=== PATIENT | female | born 1995 | race Caucasian/White ===

== ENCOUNTER 2021-02-25 12:33 | Outpatient (CLI) | payer OTHER, SELFPAY ==
[2021-02-25 13:18] LABS: Hemoglobin 12.9 g/dL (12.0-15.0); Mean Corpuscular HGB Conc 33.1 g/dl (32-36); Mean Corpuscular Hemoglobin 31.5 pg (26-34); Mean Corpuscular Volume 95.4 fl (80-100); Mean Platelet Volume 9.9 fl (7.4-10.4); Platelet Count Result 319 k/mm3 (150-375); Red Blood Count 4.09 M/mm3 (4.2-5.4); Red Cell Distribution Width 13.5 % (11.5-14.5); White Blood Count 7.9 K/mm3 (4.5-10.0)
== END 2021-02-25 12:34 | disposition home or self-care (01) ==
LOC: ANHSURGERY 12:37
PROVIDERS: Visit Provider Obstetrics & Gynecology Gynecologic Oncology
DX: Z01.812 Encounter for preprocedural laboratory examination (principal); N83.209 Unspecified ovarian cyst, unspecified side
CPT/HCPCS: 36415; 85027; 86850; 86900; 86901

== ENCOUNTER 2021-02-28 00:48 | Day surgery (SDC) | payer OTHER, SELFPAY ==
[2021-02-17 09:43] VITALS: BMI 23.9
--- NOTE | 2021-02-17 10:01 | PC.NURSE ---
Report to the Outpatient Waiting Room, entrance under the green pavilion located off [facility], at time _1000 on date __02/28/2021 . OR Time: ___1200 . - You and your visitor will be asked a series of questions to screen for COVID 19 for your protection. - A mask is required within the hospital. - Only one visitor is allowed at this time. Patient visitors will be guided where to wait when not with patient. Preoperative COVID Testing Requirements: No COVID Test needed if: (proof is required; if not received patient will have Rapid Test prior to entry) - Patient has received COVID Vaccine at least 14 days prior to procedure date or - Patient has positive COVID test result within last 90 days of surgery date. COVID Test needed if above criteria is not met If not COVID vaccinated a COVID test must be conducted within 72 hours of surgery and patient is asked to isolate self from time of testing until procedure. You will go to the [facility] for your COVID testing. The [facility] is located at the corner of [address] [facility]. You will only be called if COVID results are positive and your surgeon may reschedule your elective surgery date. Patients may have clear liquids (water, carbonated beverages, clear teas, apple juice) until 3 hours prior to surgery with a maximum of 20 ounces. - No food from midnight until time of surgery - Infants may have breast milk until 4 hours before surgery, formula 6 hours prior to surgery. - Children will be allowed to drink immediately following surgery. If applicable, please bring a bottle or sippy cup to assist with drinking. Juice, water, soda, and popsicles are readily available. For infants on formula, please bring formula the day of surgery. Pacifiers are allowed. Take the following medications with a SIP of water the morning of surgery: Medications to discontinue per physician Date to take last dose Please no make-up, nail trinidadian, hairspray, perfume, deodorant, or body powder the day of surgery. No jewelry (including any body piercings) or valuables the day of surgery, leave them at home. Please take a shower or bath the night before, or the morning of, surgery with an antibacterial soap. Wear comfortable, loose fitting clothing. Children are encouraged to wear pajamas. - Jewelry must be removed prior to entering the operating room. Rings and piercings that are not removed may be cut off. - The hospital will not accept responsibility for valuables. - Please leave all valuables, including medications, at home the day of surgery. If you are going home after surgery, a licensed pole truck driver must drive you home. - NO public transportation without another adult. - We recommend that an adult stay with you for 24 hours following discharge. - We also recommend that you do not drive, make important decision, drink alcoholic beverages, or take any drugs that were not prescribed by your health care provider for at least 24 hours after your discharge time. For Pediatric surgeries, we recommend two adults accompany the child home (only one inside the building at this time). Follow any additional instructions given to you from your surgeon. Telephone instructions given to __patient and asked if any additional questions and then verbalized understanding. Patient advised to call surgeon office or pre surgery nurse liaison [phone] if any additional questions.
[2021-02-18 13:33] VITALS: BMI 23.8
--- NOTE | 2021-02-18 13:40 | PC.NURSE ---
Report to the Outpatient Waiting Room, entrance under the green pavilion located off [facility], at time __10:00 a.m. on date . OR Time: __12:00pm . - You and your visitor will be asked a series of questions to screen for COVID 19 for your protection. - A mask is required within the hospital. - Only one visitor is allowed at this time. Patient visitors will be guided where to wait when not with patient. Preoperative COVID Testing Requirements: No COVID Test needed if: (proof is required; if not received patient will have Rapid Test prior to entry) - Patient has received COVID Vaccine at least 14 days prior to procedure date or - Patient has positive COVID test result within last 90 days of surgery date. COVID Test needed if above criteria is not met If not COVID vaccinated a COVID test must be conducted within 72 hours of surgery and patient is asked to isolate self from time of testing until procedure. You will go to the [facility] Testing Site for your COVID testing. The [facility] Testing site is located at the corner of [address] [facility]. You will only be called if COVID results are positive and your surgeon may reschedule your elective surgery date. Patients may have clear liquids (water, carbonated beverages, clear teas, apple juice) until 3 hours prior to surgery (9:00 am) with a maximum of 20 ounces. - No food from midnight until time of surgery - Infants may have breast milk until 4 hours before surgery, infant formula 6 hours prior to surgery. - Children will be allowed to drink immediately following surgery. If applicable, please bring a bottle or sippy cup to assist with drinking. Juice, water, soda, and popsicles are readily available. For infants on formula, please bring formula the day of surgery. Pacifiers are allowed. Take the following medications with a SIP of water the morning of surgery: none Medications to discontinue per physician none Date to take last dose n/a Please no make-up, nail faroese, hairspray, perfume, deodorant, or body powder the day of surgery. No jewelry (including any body piercings) or valuables the day of surgery, leave them at home. Please take a shower or bath the night before, or the morning of, surgery with an antibacterial soap. Wear comfortable, loose fitting clothing. - Jewelry must be removed prior to entering the operating room. Rings and piercings that are not removed may be cut off. - The hospital will not accept responsibility for valuables. - Please leave all valuables, including medications, at home the day of surgery. If you are going home after surgery, a licensed box truck driver must drive you home. - NO public transportation without another adult. - We recommend that an adult stay with you for 24 hours following discharge. - We also recommend that you do not drive, make important decision, drink alcoholic beverages, or take any drugs that were not prescribed by your health care provider for at least 24 hours after your discharge time. Follow any additional instructions given to you from your surgeon. Telephone instructions given to ____patient and asked if any additional questions and then verbalized understanding. Patient advised to call surgeon office or pre surgery nurse liaison [phone] if any additional questions.
[2021-02-28] VITALS (11 sets, daily range): BP systolic 97–116; BP diastolic 54–78; PULSE 68–100; RESP 16–18; TEMP 36.8–37; O2SAT 97–100
[2021-02-28] MEDS: ACETAMINOPHEN 500 MG TABLET 1000 MG PO (11:30)
[2021-02-28] MEDS: GABAPENTIN 300 MG CAPSULE PO (11:30)
[2021-02-28] MEDS: LACTATED RINGERS 1,000 ML 30 ML IV CONT ×2 (11:30→13:50)
--- NOTE | 2021-02-28 11:31 | WPDANESEPPF ---
Anes - Initial Pre Proc Eval Procedure: Operation Date: 02/28/21 12:00 Proposed Procedures p Diagnostic Laparoscopy with Bilateral Salpingectomy, Possible Bilateral Ovarian Cystectomy - Cheyenne Sanchez DO Date/Time: 02/28/21 11:31 Surgeon: Cheyenne Sanchez DO Pre Op Diagnosis: desires sterilization, bilateral ovarian cyst Patient Data Age: 25 Gender: F Height: 1.6 m Weight: 61 kg Allergies Allergy/AdvReac Type Severity Reaction Status Date / Time tramadol Allergy Severe Vomiting Verified 02/18/21 13:32 codeine Allergy Intermediate Hives Verified 02/18/21 13:32 Home Medications Medication Instructions Recorded Confirmed Type levonorgestrel-ethinyl estrad 1 tablet PO DAILY 02/17/21 02/18/21 History [Aviane] metformin 500 mg PO DAILY 02/17/21 02/18/21 History Patient hx anesthesia problems: post op nausea/vomiting Family hx anesthesia problems: none Results Review: All pre-operative results and documents have been reviewed as part of the pre-operative evaluation. COUNTS INCLUDE 234 BEDS AT THE [facility] Social History Social History Smoking packs per day: 0.5 Smoking cigarettes per day: 10.0 Years smoked: 1 Smoking pack-years: 0.50 Smoking status: Former smoker Tobacco type: cigarettes Second hand tobacco smoke exposure: Yes (FIANCEE) Alcohol intake: never Substance use: current Substance use type: marijuana Other substance usage details: 1 BOWL PER DAY Last use: 02-18-21 Living arrangements: with family Additional living arrangements comments: LIVES W/FIANCEE Spiritual care concerns: No Anes - Eval Final PreProcedure Day of Procedure 02/28/21 11:31 Patient weight: normal Heart: regular rate and rhythm Lungs: clear to auscultation Airway: Mallampati scale class II Neurological: alert and oriented Last oral intake: >/= 8 hours ASA classification: II Emergent: no Anesthetic plan: proceed Anesthesia type and monitoring: general ETT and standard monitoring Results Review: All pre-operative results and documents have been reviewed as part of the pre-operative evaluation. Informed Consent: The patient's anesthetic plan and its attendant risks and benefits were discussed with the patient/family/POA. Questions were solicited and answers provided to the satisfaction of the patient/family/POA.
--- NOTE | 2021-02-28 11:48 | PM.IMHP ---
H&P: HPI History of Present Illness Date/Time: 02/28/21 11:48 Chief Complaint: I'm here for my surgery Narrative: Here for permanent sterilization via salpingectomy and removal of a cystic structure in the left adnexa, possible ovarian cyst versus hydrosalpinx. Review of Systems Review of Systems: All systems reviewed & are unremarkable except as noted in HPI and below PMFSH Past Medical History Medical History (Updated 02/28/21 @ 11:51 by Cheyenne Sanchez DO) Adnexal cyst Social History Social History Smoking packs per day: 0.5 Smoking cigarettes per day: 10.0 Years smoked: 1 Smoking pack-years: 0.50 Smoking status: Former smoker Tobacco type: cigarettes Second hand tobacco smoke exposure: Yes (MAINE) Alcohol intake: never Substance use: current Substance use type: marijuana Other substance usage details: 1 BOWL PER DAY Last use: 02-18-21 Living arrangements: with family Additional living arrangements comments: LIVES W/FIANCEE Spiritual care concerns: No Meds Home Medications and Allergies Home Medications Medication Instructions Recorded Confirmed Type levonorgestrel-ethinyl estrad 1 tablet PO DAILY 02/17/21 02/18/21 History [Aviane] metformin 500 mg PO DAILY 02/17/21 02/18/21 History Allergies Allergy/AdvReac Type Severity Reaction Status Date / Time tramadol Allergy Severe Vomiting Verified 02/18/21 13:32 codeine Allergy Intermediate Hives Verified 02/18/21 13:32 Exam Const: General: comfortable and no acute distress Eyes: General: appearance normal, both eyes and all related structures Neck: Neck: supple Resp: Auscultation: clear to auscultation bilaterally Cardio: Rate: regular rate Rhythm: regular rhythm GI: GI Palp: Yes Soft to palpation Percussion: Yes normal to percussion Auscultation: normal bowel sounds Skin: General skin exam: normal color and no rashes or lesions noted Wounds: no wounds Neuro: General: gait normal Speech: normal speech Motor exam (neuro): Motor abnormalites present Extrem: General: normal to inspection Psych: Mental Status: mental status grossly normal Affect: normal affect Assessment and Plan Assessment and plan (1) Sterilization: Code(s): Z30.2 - Encounter for sterilization Status: Acute Assessment and Plan: Diagnostic laparoscopy, bilateral salpingectomy, possible bilateral cystectomy. (2) Adnexal cyst: Code(s): N94.9 - Unspecified condition associated with female genital organs and menstrual cycle Status: Acute
--- NOTE | 2021-02-28 11:51 | WPDHPUPDATE1 ---
History and Physical Update Update Date/Time: 02/28/21 11:51 History and Physical has been reviewed, including an updated exam of the patient. There are NO changes in the patient's condition. Risks, benefits, and alternatives have been discussed and questions answered. Patient agrees to proceed with procedure.
[2021-02-28] MEDS: SCOPOLAMINE 1.5 MG PATCH TRANSDERM (11:53)
[2021-02-28] MEDS: BUPIVACAINE HCL 0.25% PF 30 ML VIAL INFILTRATE (12:54)
[2021-02-28] MEDS: KETOROLAC 30 MG/ML VIAL (*BKC) IV PUSH (13:33)
--- NOTE | 2021-02-28 13:37 | W.PM.PROC2 ---
Procedure Note - Detailed Date of Procedure 02/28/21 Pre-op Diagnosis desires sterilization, bilateral ovarian cyst Post-op Diagnosis same Procedure Performed Diagnostic laparoscopy, bilateral salpingectomy, bilateral ovarian cystectomy Surgeon Cheyenne Sanchez DO Electrical Continuity Tester Jean-Paul Anesthesia general Indications Desires permanent sterilization, pelvic pain in female, bilateral ovarian cysts Findings Normal appearing vulva and vaginal canal, normal cervix. Internally, the liver and gallbladder were grossly unremarkable. The uterus was normal. The ovaries contained cysts containing clear fluid and gelatinous cyst likely hemorrhagic. Both tubes were slightly dilated at the ends, the left remarkably so making the fimbriae unrecognizable. I would say they were consistent with mild distal hydrosalpinx. Description of Procedure The patient was taken to the operating room where she was placed under general anesthesia. No preoperative antibiotics were indicated. A timeout was performed. A speculum was placed in the vagina and the cervix visualized. A single tooth tenaculum was used to grasp the cervix and the Zinni uterine manipulator was placed. The tenaculum and speculum were removed. A negron was placed. Gloves were changed and attention was then turned to the abdomen. The skin above the umbilicus was grasped with two penetrating towel clamps and injected. An incision was made with a scalpel and a Veress needle was introduced. A saline water drop test was performed to confirm intraperitoneal placement. CO2 insufflation was started and the abdomen was brought to a filling pressure of 15 mmg Hg. The veress was removed and replaced with a 5 mm optiview trocar. Survey of the abdomen revealed no evidence of bowel or vascular injury. The patient was placed in steep trendelenburg position. Survey of the pelvis revealed the above mentioned findings. There was no evidence of scar tissue or endometriosis. Additional trocar sites in the right and left lower quadrants were identified, injected and incised. There were no adhesions so we were able to use her previous incisions from ovarian cystectomy. 5 mm trocars were introduced under direct visualization. The right tube was elevated and the Ligasure was used to cauterize and transect it off. It was handed off through the press assistant and feeder port. The procedure was repeated on the left side. There was more fluid noted distally in the left tube. The ovaries were then assessed and noted to have bilateral cysts. The right ovary was elevated, the surface was incised with the Ligasure monopolar hook. The cyst inside was hemorrhagic and gelatinous. The cyst wall was excised and retrieved with a 5 mm endocatch bag. The procedure was repeated on the same side. Hemostat powder was sprayed in both ovaries. The left was hemostatic but the right was not. 3-0 v-lock was used to reapproximate the edges of the ovary and resulted in hemostasis. The left was rechecked and found to be hemostatic so was not reapproximated. All fluid and blood was suctioned out of the pelvis. The gas was stopped, the trocars removed and all CO2 allowed to escape. She was taken out of Trendelenburg position. The abdominal incisions were closed with 4-0 monocryl in subcuticular fashion. The uterine manipulator was taken out. All instrument and sponge counts were correct at the conclusion of the procedure. The patient was taken to the recovery room in stable condition. Estimated Blood Loss 25 IV Fluids 1,000 Urine Output 200 Drains No Packing No Pathology yes (Right fallopian tube, left fallopian tube, right ovarian cyst, left ovarian cyst) Complications No immediate complications Condition stable Disposition PACU
[2021-02-28] MEDS: ONDANSETRON INJ 4 MG/2 ML VIAL IV PUSH (15:14)
== END 2021-02-28 16:10 | disposition home or self-care (01) ==
PROVIDERS: Visit Provider Obstetrics & Gynecology Gynecologic Oncology
PROC: (CPT 49320; principal; 2021-02-28 12:00)
DX: Z30.2 Encounter for sterilization (principal); N83.12 Corpus luteum cyst of left ovary; N83.11 Corpus luteum cyst of right ovary; Z87.891 Personal history of nicotine dependence; F12.90 Cannabis use, unspecified, uncomplicated
CPT/HCPCS: 58662; 58661; 88302; 88305; A9270; J1100; J1885; J2250; J2405; J2704; J3010; J7120